=== PATIENT | female | born 1995 | race Caucasian/White ===

== ENCOUNTER 2018-01-24 16:14 | Emergency (ER) | payer MEDICAID ==
[~2018-01-24] VITALS: Ht 162.6 cm; Wt 69.0 kg
[~2018-01-24 16:14] MED LIST: CYCL-1 PO; HYDR-569 PO; IBUP-1985 PO; META800T87 PO
[2018-01-24 16:15] VITALS: BP 130/66
[2018-01-24] MEDS ORDERED: ketorolac trometh. 30mg/ml inj. IM ONE (17:10)
[2018-01-24] MEDS ORDERED: buproprion 150mg XL (24-hour) tablet PO SCH (17:10)
[2018-01-24] MEDS ORDERED: clonazePAM 0.5mg tablet PO ONE (17:10)
[2018-01-24] MEDS ORDERED: HYDROcodone/acetaminophen 5mg/325mg tablet PO ONE (17:10)
[2018-01-24] MEDS ORDERED: NAPR-56 PO (17:14)
[2018-01-24] MEDS ORDERED: HYDR-569 PO (17:14)
[2018-01-24] MEDS ORDERED: BUPR-94 PO (17:14)
[2018-01-24] MEDS ORDERED: CLON-528 PO (17:14)
[2018-01-24] MEDS ORDERED: buPROPion SR 150mg tablet PO ONE (17:15)
== END 2018-01-24 17:37 | disposition home or self-care (01) ==
LOC: ER 16:15
DX: F41.9 Anxiety disorder, unspecified (principal); F32.9 Major depressive disorder, single episode, unspecified; G89.29 Other chronic pain; M54.9 Dorsalgia, unspecified; Z79.899 Other long term (current) drug therapy
CPT/HCPCS: 99284

== ENCOUNTER 2020-11-12 19:04 | Emergency (ER) | payer MEDICAID ==
[~2020-11-12] VITALS: Ht 162.6 cm; Wt 68.1 kg
[~2020-11-12 19:04] MED LIST changes: +BUPR-94 PO; +CLON-528 PO; +HYDR-4383 PO; -HYDR-569 PO
[2020-11-12 19:17] VITALS: BP 104/54
[2020-11-12 20:54] LABS: ALANINE AMINOTRANSFERASE 45 U/L (12-78); ALBUMIN/GLOBULIN RATIO 0.8 (1.1-1.5); ALKALINE PHOSPHATASE 53 IU/L (46-116); ANION GAP 8 (8-16); ASPARTATE AMINO TRANSFERASE 26 U/L (10-37); BILIRUBIN,TOTAL 0.2 MG/DL (0.1-1.0); BLOOD UREA NITROGEN 13 MG/DL (7-18); CALCIUM 8.5 MG/DL (8.5-10.1); CHLORIDE 103 MMOL/L (99-107); GLUCOSE 68 MG/DL (70-104); LIPASE 110 U/L (73-393); POTASSIUM 3.4 MMOL/L (3.5-5.1); SODIUM 140 MMOL/L (135-145); TOTAL CARBON DIOXIDE 28.8 MMOL/L (24-32); TOTAL PROTEIN 6.8 G/DL (6.4-8.2); eGFR > 90 ML/MIN
[2020-11-12 20:55] LABS: BASOPHILS % (AUTO) 0.2 % (0-1); EOSINOPHILS # (AUTO) 0.2 X10'3 (0-0.9); EOSINOPHILS % (AUTO) 1.4 % (0-6); HEMATOCRIT 31.2 % (35.0-45.0); HEMOGLOBIN 10.6 g/dl (12.0-16.0); LYMPHOCYTES # (AUTO) 1.9 X10'3 (1.1-4.8); LYMPHOCYTES % (AUTO) 14.9 % (21-51); MEAN CORPUSCULAR HEMOGLOBIN 32.2 PG (27.0-31.0); MEAN CORPUSCULAR HGB CONC 34.1 g/dL (33.0-36.5); MEAN CORPUSCULAR VOLUME 94.3 FL (78-98); MONOCYTES # (AUTO) 0.9 X10'3 (0-0.9); MONOCYTES % (AUTO) 6.8 % (2-12); NEUTROPHILS # (AUTO) 9.8 X10'3 (1.8-7.7); NEUTROPHILS % (AUTO) 76.7 % (42-75); PLATELET COUNT 245 X10'3 (140-440); RED BLOOD COUNT 3.31 X10'6 (4.20-5.60); RED CELL DISTRIBUTION WIDTH 13.3 % (11.5-14.5); WHITE BLOOD COUNT 12.7 X10'3 (4.5-11.0)
[2020-11-12 21:34] LABS: URINE HCG POSITIVE (NEG)
[2020-11-12 21:39] LABS: CLARITY,URINE CLEAR (Clear); COLOR,URINE YELLOW (Yellow); GLUCOSE, URINE NEGATIVE (Neg); KETONES,URINE NEGATIVE (Neg); LEUKOCYTE ESTERASE ,URINE NEGATIVE (Neg); NITRITES, URINE NEGATIVE (Neg); OCCULT BLOOD,URINE NEGATIVE (Neg); PROTEIN,URINE NEGATIVE (Neg); UROBILINOGEN,URINE 0.2 E.U/dL (0.2-1.0)
[2020-11-12 21:50] LABS: UA COLLECTION TYPE CLN CATCH MIDSTREAM
[2020-11-12] MEDS ORDERED: ibuprofen tablet 400 MG TABLET PO ONE (23:45)
[2020-11-12] MEDS ORDERED: acetaminophen 325mg tablet PO ONE (23:45)
== END 2020-11-13 00:31 | disposition left against medical advice (07) ==
LOC: ER 19:05
DX: O26.892 Other specified pregnancy related conditions, second trimester (principal); R10.31 Right lower quadrant pain; R10.32 Left lower quadrant pain; R10.9 Unspecified abdominal pain; R11.0 Nausea; Z3A.21 21 weeks gestation of pregnancy; G89.29 Other chronic pain; Z79.899 Other long term (current) drug therapy
CPT/HCPCS: 36415; 76700; 80053; 81003; 81025; 83690; 85025; 99284